=== PATIENT | male | born 1945 | race Caucasian/White ===

== ENCOUNTER → 2017-12-22 | Outpatient (CLI) | payer MEDICARE ==
[~2017-12-22] MED LIST: ALFU10TA PO; ALLO100T30 PO; ASCO250T3 PO; ASPI-496 PO; ASPI325T17 PO; ATOR40TA PO; CHOL2000 PO; LYSI100010 PO; M-171CAP PO; MAGN400T36 PO; MELA10TA7 PO; METO25TA35 PO; METO25TA91 PO; OMEG-133 PO; REGADENOSON 0.4 MG/5 ML SYRINGE ONE; SUPER BETA PROSTATE PO; [UNRECOGNIZED DRUG - OTHER] PO; super beets PO
== END | disposition home or self-care (01) ==
LOC: CFH 07:38
PROVIDERS: ATTEND Internal Medicine Cardiovascular Disease
DX: I08.0 Rheumatic disorders of both mitral and aortic valves (principal); I25.9 Chronic ischemic heart disease, unspecified; I47.2 Ventricular tachycardia
CPT/HCPCS: 78452; 93017; 93306; A9502; J2785

== ENCOUNTER 2017-12-23 09:18 | Day surgery (SDC) | payer MEDICARE ==
[~2017-12-23] VITALS: Ht 172.7 cm; Wt 81.4 kg
[~2017-12-23 09:18] MED LIST changes: -ALFU10TA PO; -ASCO250T3 PO; -ATOR40TA PO; -CHOL2000 PO; -LYSI100010 PO; -M-171CAP PO; -MAGN400T36 PO; -MELA10TA7 PO; -METO25TA91 PO; -OMEG-133 PO; -REGADENOSON 0.4 MG/5 ML SYRINGE ONE; -SUPER BETA PROSTATE PO; -[UNRECOGNIZED DRUG - OTHER] PO; -super beets PO
[2017-12-23] MEDS ORDERED: SODIUM CHLORIDE 0.9% 1,000 ML IV ONE (09:40)
[2017-12-23 09:47] VITALS: BP 131/73
[2017-12-23] MEDS ORDERED: ASPIRIN 325 MG TABLET EC PO ONE (10:00)
[2017-12-23 10:04] LABS: BASOPHILS # (AUTO) 0.04 x10^3/uL (0-0.1); BASOPHILS % (AUTO) 1 % (0-1); EOSINOPHILS # (AUTO) 0.16 x10^3/uL (0-0.4); EOSINOPHILS % (AUTO) 2 % (1-7); LYMPHOCYTES # (AUTO) 3.01 x10^3/uL (1-3.4); LYMPHOCYTES % (AUTO) 35 % (22-44); MD NO; MEAN CORPUSCULAR HGB CONC 34.9 g/dL (33.2-36.2); MEAN CORPUSCULAR VOLUME 88.6 fL (81-97); MEAN PLATELET VOLUME 10.2 fL (7.4-10.4); MONOCYTES # (AUTO) 0.53 x10^3/uL (0.2-0.8); MONOCYTES % (AUTO) 6 % (2-9); NEUTROPHILS # (AUTO) 4.77 x10^3/uL (1.8-6.8); NEUTROPHILS % (AUTO) 56 % (42-75); PLATELET COUNT 167 x10^3/uL (130-400); RED BLOOD COUNT 5.46 x10^6/uL (4.38-5.82); RED CELL DISTRIBUTION WIDTH 14.3 % (9.4-14.8)
[2017-12-23] MEDS ORDERED: ASPIRIN 325 MG TABLET EC ONE (10:10)
[2017-12-23] MEDS ORDERED: METO25TA91 PO (10:13)
[2017-12-23] MEDS ORDERED: ASPI-496 PO (10:13)
[2017-12-23] MEDS ORDERED: ALFU10TA PO (10:13)
[2017-12-23] MEDS ORDERED: SUPER BETA PROSTATE PO (10:13)
[2017-12-23] MEDS ORDERED: OMEG-133 PO (10:13)
[2017-12-23] MEDS ORDERED: M-171CAP PO (10:13)
[2017-12-23] MEDS ORDERED: ATOR40TA PO (10:13)
[2017-12-23] MEDS ORDERED: ASCO250T3 PO (10:13)
[2017-12-23] MEDS ORDERED: MAGN400T36 PO (10:13)
[2017-12-23] MEDS ORDERED: [UNRECOGNIZED DRUG - OTHER] PO (10:13)
[2017-12-23] MEDS ORDERED: CHOL2000 PO (10:13)
[2017-12-23] MEDS ORDERED: super beets PO (10:13)
[2017-12-23] MEDS ORDERED: MELA10TA7 PO (10:13)
[2017-12-23] MEDS ORDERED: LYSI100010 PO (10:13)
[2017-12-23 10:15] LABS: ANION GAP 8 mmol/L (5-15); CALCIUM 8.9 mg/dL (8.5-10.1); CHLORIDE 111 mmol/L (98-107)
[2017-12-23] MEDS ORDERED: MIDAZOLAM 1 MG/ML, 5ML ONE (10:17)
[2017-12-23] MEDS ORDERED: BIVALIRUDIN 250 MG ONE (10:17)
[2017-12-23] MEDS ORDERED: LIDOCAINE/PF 1%, 30ML ONE (10:17)
[2017-12-23] MEDS ORDERED: TICAGRELOR 90 MG TABLET ONE (10:17)
[2017-12-23] MEDS ORDERED: FENTANYL PF 100 MCG/2ML ONE (10:17)
[2017-12-23] MEDS ORDERED: VERAPAMIL 2.5 MG/ML, 2ML ONE (10:17)
[2017-12-23] MEDS ORDERED: HEPARIN 1,000 UNITS/ML, 10ML ONE (10:17)
[2017-12-23] MEDS ORDERED: SODIUM CHLORIDE 0.9% 1,000 ML IV SCH (11:21)
== END 2017-12-23 13:36 | disposition home or self-care (01) ==
LOC: CACL 09:18
PROVIDERS: ATTEND Internal Medicine Cardiovascular Disease
DX: I25.119 Atherosclerotic heart disease of native coronary artery with unspecified angina pectoris (principal); I47.2 Ventricular tachycardia; E78.00 Pure hypercholesterolemia, unspecified; Z79.82 Long term (current) use of aspirin; Z79.899 Other long term (current) drug therapy
CPT/HCPCS: 36415; 80048; 85025; 93458; 93571; 99156; C1769; C1887; C1894; J1644; J2250; J3010; J3490; Q9967; J0583

== ENCOUNTER → 2018-05-30 | Outpatient (CLI) | payer MEDICARE ==
[~2018-05-30] MED LIST changes: +ALFU10TA PO; +ASCO250T3 PO; +ATOR40TA PO; +CHOL2000 PO; +LYSI100010 PO; +M-171CAP PO; +MAGN400T36 PO; +MELA10TA7 PO; +METO25TA91 PO; +OMEG-133 PO; +SUPER BETA PROSTATE PO; +[UNRECOGNIZED DRUG - OTHER] PO; +super beets PO
== END | disposition home or self-care (01) ==
LOC: CFH 12:35
PROVIDERS: ATTEND Family Medicine
DX: R20.2 Paresthesia of skin (principal)

== ENCOUNTER 2019-11-20 10:04 | Day surgery (SDC) | payer MEDICARE ==
[~2019-11-20] VITALS: Ht 172.7 cm; Wt 85.0 kg
[~2019-11-20 10:04] MED LIST changes: +ASCO250T13 PO; -ASCO250T3 PO
[2019-11-20 11:06] LABS: BASOPHILS # (AUTO) 0.04 x10^3/uL (0-0.1); BASOPHILS % (AUTO) 0 % (0-1); EOSINOPHILS # (AUTO) 0.21 x10^3/uL (0-0.4); EOSINOPHILS % (AUTO) 3 % (1-7); LYMPHOCYTES # (AUTO) 2.83 x10^3/uL (1-3.4); LYMPHOCYTES % (AUTO) 35 % (22-44); MD NO; MEAN CORPUSCULAR HGB CONC 33.3 g/dL (33.2-36.2); MEAN PLATELET VOLUME 10.8 fL (7.4-10.4); MONOCYTES # (AUTO) 0.57 x10^3/uL (0.2-0.8); MONOCYTES % (AUTO) 7 % (2-9); NEUTROPHILS # (AUTO) 4.56 x10^3/uL (1.8-6.8); NEUTROPHILS % (AUTO) 56 % (42-75); PLATELET COUNT 138 x10^3/uL (130-400); RED CELL DISTRIBUTION WIDTH 13.6 % (9.4-14.8)
[2019-11-20 11:18] LABS: ANION GAP 7 mmol/L (5-15); CALCIUM 8.8 mg/dL (8.5-10.1); CHLORIDE 111 mmol/L (98-107); CREATININE 1.02 mg/dL (0.7-1.3)
[2019-11-20 11:34] VITALS: BP 152/79
[2019-11-20] MEDS ORDERED: NITROGLYCERIN 30 MCG/ML, 20ML VIAL ONE (12:42)
[2019-11-20] MEDS ORDERED: FENTANYL PF 100 MCG/2ML ONE (12:42)
[2019-11-20] MEDS ORDERED: VERAPAMIL 2.5 MG/ML, 2ML ONE (12:42)
[2019-11-20] MEDS ORDERED: LIDOCAINE 1%, 20ML ONE (12:42)
[2019-11-20] MEDS ORDERED: HEPARIN 1,000 UNITS/ML, 10ML ONE (12:42)
[2019-11-20] MEDS ORDERED: MIDAZOLAM 1 MG/ML, 2ML ONE (12:42)
[2019-11-20] MEDS ORDERED: BIVALIRUDIN 250 MG ONE (12:43)
== END 2019-11-20 15:36 | disposition home or self-care (01) ==
LOC: CACL 10:04
PROVIDERS: ATTEND Internal Medicine Cardiovascular Disease
DX: R94.39 Abnormal result of other cardiovascular function study (principal); I25.110 Atherosclerotic heart disease of native coronary artery with unstable angina pectoris; I25.84 Coronary atherosclerosis due to calcified coronary lesion; I47.2 Ventricular tachycardia; M10.9 Gout, unspecified; Z79.82 Long term (current) use of aspirin; Z79.899 Other long term (current) drug therapy
CPT/HCPCS: 36415; 80048; 85025; 92978; 92979; 93458; 93571; 99156; 99157; C1753; C1769; C1887; C1894; J1644; J2250; J3010; Q9967; J0583